=== PATIENT | male | born 1945 | race Caucasian/White ===

== ENCOUNTER 2024-03-16 10:00 | Outpatient (RCR) | payer OTHER, SELFPAY | END 2024-05-16 13:40 | disposition home or self-care (01) | PROVIDERS: PCP Family Medicine; Visit Provider Orthopaedic Surgery | DX: M75.102 Unspecified rotator cuff tear or rupture of left shoulder, not specified as traumatic (principal); Z51.89 Encounter for other specified aftercare | CPT/HCPCS: 97110; 97140; 97161 ==

== ENCOUNTER 2025-01-11 13:45 | Outpatient (RCR) | payer MEDICARE, OTHER, SELFPAY ==
--- OUTSIDE RECORDS SUMMARY | 2024-11-16 08:11 | XMS_ITS | Encounter Summary ---
Author Organization [facility] Address [address] [place] [address]. [place] [address] Care Team Providers Care Manufacturing Analyst Name Role Phone Joe Cole MD Primary Care Provider [phone] Eitan Alvarado MD Unavailable Luiz Flores MD Unavailable [phone]- [phone] Encounter Details Date Type Department Care Team (Late st Contact Info) Description 10/19/2024 Telephone [facility] [place] 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 Gender Identity Male 07/28/2023 6:37 PM CDT Sexual Orientation Straight 07/28/2023 6: 37 PM CDT documented as of this encounter Miscellaneous Notes * Telephone Encounter - Anaya Pitts RN - 10/19/2024 3:22 PM CST Called patient and scheduled him for today with Dr Flores 450pm Anaya ALDRICH, RN [facility] Office: [phone] SITE DRILLING ENGINEER * Telephone Encounter - Deepti Grijalva - 10/19/2024 3:07 PM CST [facility] Who is the name of the provider?: LUIZ FLORES What is the location you see this provider at/preferred location?: [place] Person calling / Facility: [facility] Phone number: [phone] (home) Nurse call back needed: Yes Reason for call: Patient's arms and legs are black and hands are falling a sleep and turning white and purple. Pharmacy location: n/a Outside Imaging: n/a Can we leave a detailed message on this number? YES 10/19/2024, 3:07 PM SITE DRILLING ENGINEER documented in this encounter Plan of Treatment Not on file documented as of this encounter Visit Diagnoses Not on filedocumented in this encounter Care Teams Manufacturing Analyst Relationship Specialty Start Date End Date Joe Cole MD PCP - General Family Practice 07/08/14 Eitan Alvarado MD [address] [place] [address] Assigned Surgical Provider 07/31/23 Luiz Flores MD [address] [place] [address] Assigned Heart and Vascular Provider 03/07/24 documented as of this encounter
--- OUTSIDE RECORDS SUMMARY | 2024-11-16 08:11 | XMS_ITS | Encounter Summary ---
Author Organization [place] Address [address] [place] [address]. [place] [address] Care Team Providers Care Utilities Manager Name Role Phone Joe Cole MD Primary Care Provider [phone] Eitan Alvarado MD Unavailable [phone] Mikhail Sauceda MD Unavailable [phone] Reason for Visit * Reason Comments RECHECK Pt c/o arms turning black and hands are numb Encounter Details Date Type Department Care Team (Late st Contact Info) Description 10/19/2024 4:50 PM LABORATORY GENETICIST Virtual Visit [facility] [place] 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 Those studies revealed slightly ectatic bilateral common iliac arteries measuring up to 1.4 cm. He also has small BLE popliteal artery aneurysms. He did have diffuse atherosclerotic calcification throughout all visible arteries. We were unable to visualize blood flow in the right posterior tibial artery, though the remaining arteries are patent in both lower extremities with triphasic/biphasic waveforms. He can walk six blocks before developing claudication. He does not have CLI sxs. As he was only a claudicant, he was advised to increase his walking at home, walking up to and through pain. With this he notes improvement in sxs. He did not get labs done as ordered in 05/2024. The plan had been to repeat imaging and labs in 05/2025. He called us several hours ago stating hisarms and legs are black and hands are falling asleep and turning white and purple. He does not have ice cold hands. He states he can feel bilateral radial and femoral pulses. Through a video call today I looked at his forearms. He simply has prominent bruising of his forearms. This is likely due to the aging process, chronic steroid use, and chronic minocycline use. Plan:He should discuss management of steroids and minocycline wit the responsible MD for those drugs. Go to ED if he develops sxs of acute limb ischemia, which were explained to him. (R20.2) Paresthesias Comment: These are definitively due to radiculopathic presentations, not due to arterial or venous vascular disease. Plan: He should proceed with whatever solution his spinal surgeon feels to be appropriate. (I73.9) PAD (peripheral artery disease) (H24) (primary encounter diagnosis) Comment: ABIs numerically abnormal but he has noncompressible vessels. Check the below in one year. Plan: US Lower Extremity Arterial Duplex Bilateral, US MAREK Doppler with Exercise Bilateral (E78.5) Hyperlipidemia LDL goal <70 Comment: He did not get labs done as ordered. Plan: rosuvastatin (CRESTOR) 5 MG tablet, C-Reactive Protein, High Sensitivity, LipoFit by NMR, Lipoprotein (a) We will simply check labs in 06/2025. 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 Plan: US Lower Extremity Arterial Duplex Bilateral in 07/09. (I10) Essential hypertension Comment: BP at home unknown, maintain on current doses as he was agitated by traffic coming in today. Plan: losartan (COZAAR) 25 MG tablet (R73.01) IFG (impaired fasting glucose) Comment: avoid cho Plan: Comprehensive metabolic panel, Hemoglobin A1c (I87.2) Venous (peripheral) insufficiency Comment: Wear knee high compression hosiery. Plan: Rx given 21 minutes total medical care on today's date. location: office Pt location: home Phone call start: 16:44 Phone call end: 17:05 Doximity HPI: Alex Botello is a slender, physically active nonsmoking 78 year old male with mild BLE venous insufficiency, htn, HLD but without known ASCVD or DM2 who is presenting at the current time todiscuss his symptoms of instantaneously occurring sharp electrical brought on by bending over to p[ut pants or shoes on, as well as numbness and tingling with discoloration in his fingers. The finger sxs are not brought about by exposure to environmentally cooler temperatures. He had several RICHELLE which alleviated those sxs in the past. He was seen by a spinal surgeon recently who stayed he would need a multi level fusion. Review Of Systems Skin: Patient's arms and legs are black and hands are falling a sleep and turning white and purple. Eyes: negative Ears/Nose/Throat: negative Respiratory: No shortness of breath, dyspnea on exertion, cough, or hemoptysis Cardiovascular: negative Gastrointestinal: negative Genitourinary: negative Musculoskeletal: negative Neurologic: negative Psychiatric: negative Hematologic/Lymphatic/Immunologic: negative Endocrine: negative RATORY GENETICIST documented in this encounter Plan of Treatment Not on file documented as of this encounter Visit Diagnoses Diagnosis Bruising- Primary Contusion of unspecified site documented in this encounter Care Teams Utilities Manager Relationship Specialty Start Date End Date Joe Cole MD PCP - General Family Practice 07/08/14 Eitan Alvarado MD [address] [place] [address] Assigned Surgical Provider 07/31/23 Mikhail Sauceda MD [address] [place] [address] Assigned Heart and Vascular Provider 03/07/24 documented as of this encounter
--- OUTSIDE RECORDS SUMMARY | 2024-11-16 08:11 | XMS_ITS | Clinical Summary ---
Author Organization [facility] Address [address] [place] [id number] Care Team Providers Care Nip Wrapper Name Role Phone Joe Cole MD Primary Care Provider [phone] Eitan Alvarado MD Unavailable [phone] Mikhail Sauceda MD Unavailable [phone] Allergies Active Allergy Reactions Criticality Noted Date Comments Oxycodone Nausea 07/08/2014 Penicillins Itching 07/08/2014 Fingers swelling, itching happened when young Medications PREDNISONE PO Take 4 mg by mouth Active Probiotic Product (PRO-BIOTIC BLEND PO) Active zinc 50 MG TABS Acti ve Ascorbic Acid (VITAMIN C PO) Take 500 mg by mouth Active Garlic 1000 MG CAPS Active Capsicum, Cayenne, (CAYENNE PO) Take 450 mg by mouth Active Apremilast (OTEZLA PO) Take 30 mg by mouth 2 times daily Active Respiratory Therapy Supplies (CARETOUCH 2 CPAP HOSE CLERK SPECIALIST) [facility] CPAP machine for home use at pressure 8 cmw, starting pressure 5pm, nasal mask x1/3month with nasal cushion x2/mo 3 Active clobetasol (TEMOVATE) 0.05 % external solution Apply topically 2 times daily Active desipramine (NORPRAMIN) 10 MG tablet Take 20 mg by mouth At Bedtime Active fluticasone (CUTIVATE) 0.05 % external cream Apply topically daily as needed 3 Active losartan (COZAAR) 25 MG tabletIndication s:Essential hypertension Take 1 tablet (25 mg) by mouth daily 90 tablet 3 4 Active rosuvastatin (CRESTOR) 5 MG tabletIndication s:Hyperlipidemia LDL goal <70 Take 1 tablet (5 mg) by mouth daily 90 tablet 3 4 Active terbinafine (LAMISIL) 250 MG tablet Take 250 mg by mouth daily at 2 pm 3 024 Discontinu ed(Stopped by Patient (No AVS)) Encounters Date Type Department Care Team Description 10/19/2024 4:50 PM RETAIL PERSONAL BANKER Virtual Visit [facility] [place] [address] [place] [phone] Mikhail Sauceda MD Bruising (Primary Dx) 10/19/2024 Telephone [facility] [place] [address] [place] [phone] Mikhail Sauceda MD from Last 3 Months Family History Medical History Relation Comments Cancer Brother brain Cancer - colorectal Mother Cerebrovascular Disease Mother Hypertension Mother Relation Status Comments Brother Mother Social History Tobacco Use Types Packs/Day Years Used Date Smoking Tobacco: Former Cigarettes Q uit: 06/06/2017 Smokeless Tobacco: Former Tobacco Cessation:Counseling Given: Not Answered Alcohol Use Standard Drinks/Week Comments Yes 0 (1 standard drink = 0.6 oz pur e alcohol) occ PHQ-2 Answer Date Recorded PHQ-2 Score 0 06/27/2024 Adolescent Education Answer Date Record ed Getting School Help Needed Not on file 08/07 Sex and Gender Information Value Date Recorded Sex Assigned at Male 07/28/2023 6:37 PM CDT Legal Sex Male 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 PERSONAL 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 Gender Identity Male 07/28/2023 6:37 PM CDT Sexual Orientation Straight 07/28/2023 6: 37 PM CDT Last Filed Vital Signs Vital Sign Reading Time Taken Comments Blood Pressure 146/69 06/27/2024 1:11 PM CDT Pulse 84 06/27/2024 1:11 PM CDT Temperature 36.3 C (97.4 F) 06/09/2018 9:56 AM CDT Respiratory Rate 16 07/28/2023 9:47 AM CDT Oxygen Saturation 96% 06/27/2024 1:11 PM CDT Inhaled Oxygen Concentration - - Weight 73.5 kg (162 lb) 06/27/2024 1:11 PM CDT Height 180.3 cm (5' 11) 03/01/2024 11:35 AM CDT Body Mass Index 22.59 03/01/2024 11:35 AM CDT Plan of Treatment Health Maintenance Due Date Last Done Comments ADVANCE CARE PLANNING 1945 ANNUAL REVIEW OF HM ORDERS 1945 BMP 1945 GLUCOSE 1947 LIPID 1947 HEPATITIS C SCREENING 1965 LUNG CANCER SCREENING 1997 RSV VACCINE (1 - 1-dose 75+ series) 2022 FALL RISK ASSESSMENT 06/25/2022 06/25/2021 MEDICARE ANNUAL WELLNESS VISIT 06/30/2024 06/30/2023, 06/30/2023, 06/24/2022, Additional history exists COVID-19 Vaccine ( - season) 2024 09/30/2021, 02/08/2021 INFLUENZA VACCINE (#1) 2024 PHQ-2 (once per calendar year) 2024 06/27/2024 DTAP/TDAP/TD IMMUNIZATION (2 - Td or Tdap) 04/05/2025 04/05/2015, 10/16/2005, 02/18/2005 Pneumococcal Vaccine: 50+ Years Completed 04/06/2016, 04/05/2015 ZOSTER IMMUNIZATION Completed 10/14/2020, 07/02/2020, 05/09/2008 HPV IMMUNIZATION Aged Out No longer e ligible based on patient's age to complete this topic MENINGITIS IMMUNIZATION Aged Out No l onger eligible based on patient's age to complete this topic RSV MONOCLONAL ANTIBODY Aged Out No l onger eligible based on patient's age to complete this topic Insurance [employer] [facility] Care Teams Nip Wrapper Relationship Specialty Start Date End Date Joe Cole MD PCP - General Family Practice 07/08/14 Eitan Alvarado MD [address] [place] [address] Assigned Surgical Provider 07/31/23 Mikhail Sauceda MD [address] [address] Assigned Heart and Vascular Provider 03/07/24
--- OUTSIDE RECORDS SUMMARY | 2024-11-16 08:11 | XMS_ITS | Clinical Summary ---
Author Organization [email or web address] Address [place], [place] [address] Care Team Providers Care Check Airman Name Role Phone Joe Cole MD Primary Care Provider [phone] Silvano Buchanan MD Unavailable [phone] Allergies Active Allergy Reactions Criticality Noted Date Comments Acetaminophen *Unknown - Pt Doesn' t Remember Unknown 09/30/2020 Amlodipine Other - Describe In Comment Field Unknown 04/14/2019 Gynecomastia while on prednisone Candesartan Nausea Only,Headache Unknown 02/12/2014 Chlorthalidone Other - Describe In Comment Field Unknown 04/14/2019 Gynecomastia while on prednisone Lisinopril Headache Unknown 04/04/2014 Oxycodone Nausea Only Medium 10/16/2008 Severe nausea Penicillins Itching Unknown 08/16/2006 Ancef tolerated Fingers swelling, itching happened when young Medications ZINC 50 MG CAP take 1 tablet (50 mg) by oral route ONCE daily Active VITAMIN B COMPLEX ORAL Take 1 tablet by mouth. 07/08/20 16 Active clobetasol 0.05% TOPICAL (TEMOVATE) 0.05 % external solution APPLY TO AFFECTED AREA(S) OF SCALP TWO TIMES A DAY ON WEEKENDS 10/13/20 21 Active Calcipotriene 0.005 % topical solution APPLY AMOUNT TO COVER THE LESIONS ON SCALP 2 TIMES A DAY ; RUB IN GENTLY & COMPLETELY - USE WEDNESDAY - Wednesday10/23/20 21 Active CPAPIndications:OS A (obstructive sleep apnea) CPAP machine for home use at pressure 8 cmw, starting pressure 5pm, nasal mask x1/3month with nasal cushion x2/mo 1 Each 11 07/15/20 23 Active FINASTERIDE ORAL Take 2.5 mg by mouth once daily. Active minocycline (MINOCIN) 100 mg tablet Take 100 mg by mouth two times daily. Active risankizumab-rzaa (Skyrizi) 150 mg/mL subcutaneous pen Inject 150 mg subcutaneous every 4 months. Active ascorbic acid, vitamin C, (Vitamin C) 1,000 mg tablet Take 1,000 mg by mouth once daily. Active GARLIC ORAL Take by mouth. Act sammie CAPSICUM, CAYENNE, ORAL Take by mouth. Activ e rosuvastatin (CRESTOR) 5 mg tabletIndications: Other hyperlipidemia Take 1 Tablet (5 mg) by mouth at bedtime. 90 Tablet 3 07/04/20 24 Active losartan (COZAAR) 50 mg tabletIndications: Essential hypertension Take 1 Tablet (50 mg) by mouth once daily. 90 Tablet 3 07/04/20 24 Active alendronate (FOSAMAX) 70 mg tabletIndications: Age-related osteoporosis without current pathological fracture Take 1 Tablet (70 mg) by mouth once a week in the morning. Take on empty stomach with full glass of water. Do not lie down for 1 hr. 12 Tablet 4 07/04/20 24 Active desipramine (NORPRAMIN) 10 mg tabletIndications: Irritable bowel syndrome with diarrhea Take 1 Tablet (10 mg) by mouth at bedtime. 100 Tablet 3 07/04/20 24 Active predniSONE (DELTASONE) 1 mg tabletIndications: Psoriatic arthritis (HC) Take 4 Tablets (4 mg) by mouth once daily with a meal. 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 Age-related osteoporosis wit hout current pathological fracture 07/30/2022 Overview (07/30/2022): Diagnosed on bone density in 07/2022. Started on Fosamax. Follow up bone density in 2 years. Drug-induced gynecomastia 10/17/2018 Overview (10/17/2018): Started in 2018. [place] to be due to a combination of prednisone, amlodipine and chlorthalidone Essential hypertension 09/29/2018 Other hyperlipidemia 04/13/2018 Kidney stones 03/20/2009 Thoracic or lumbosacral neur itis or radiculitis, unspecified 09/07/2008 PSORIATIC ARTHRITIS 03/06/2008 Overview (04/14/2019): Tapering off Prednisone under the direction of Dr. Corona as of 04/14/2019. 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 09/07/2008 2021 Spinal stenosis, lumbar sheila on, without neurogenic claudication 10/26/2007 09/07/2008 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 10/26/2007 03/21/2010 Encounters Date Type Department Care Team Description 11/02/2024 1:00 PM WEIGHT ENGINEER Office Visit [facility] [address] [place] [address] Santos Henley, OD Eye Problem (Pressure and Reduced Vision OU/both eyes following cataract surgery ) 11/02/2024 Travel 09/13/2024 11:20 AM CDT Office Visit [facility] [address] [place] [address] Joe Cole MD Preoperative Exam (Left shoulder surgery 09/28/2024) 09/13/2024 Travel 09/08/2024 Travel 09/01/2024 11:20 AM CDT Office Visit [facility] [address] [place] [address] Santos Henley, OD Post-op (3 Week IOL OU POV ) 09/01/2024 Travel 08/28/2024 Travel from Last 3 Months Immunizations Name Administration Dates Next Due COVID-19 vaccine (Brown-J&J) PF, MDV 1 Hepatitis A (Adult) 03/21/2010,08/19/2009 Pneumococcal Poly,23-Valent (Pneumovax) 04/06/20 16 Pneumococcal conj 13-Valent (Prevnar 13) 015 Td (Age >=7 Years) 02/18/2005 Td, Preservative Free (age >= 7 Years) 5 Tdap 04/05/2015 Zoster (Shingrix-RZV, recombinant) 10/14/2020, Zoster (Zostavax-ZVL, live) 05/09/2008 Family History Medical History Relation Name Comments Cancer Brother 1 liver age 56 di ed Cancer Brother 2 brain tumor 51 Other Father emphysema, at 70 of this Stroke Mother Stroke at 82, d ied at 84 of stroke complications Other Sister Psoriasis Cancer-colon No Family History Cancer-prostate No Family History Relation Name Status Comments Brother 1 Brother 2 Father Mother Sister Alive Social History Tobacco Use Types Packs/Day Years Used Date Smoking Tobacco: Former Cigarettes 1 38 0 07/04/1962 - 07/04/2000 Smokeless Tobacco: Never Tobacco Cessation:Counseling Given: Yes Comments:Chewed some tobacco while smoking Alcohol Use Standard Drinks/Week Comments Yes 11.7 (1 standard drink = 0.6 oz pure alcohol) about 14 drinks per week [facility] Utilities Answer Date Recorded Do you have trouble paying f or utilities (for example, heat, electricity, water, phone)? Yes 07/20/2024 PHQ-2 Answer Date Recorded PHQ-2 TOTAL SCORE 0 07/04/2024 Social Connections Answer Date Recorded Do you often feel lonely or isolated from those around you? 0 07/20/2024 Alcohol Use Answer Date Recorded How often do you have a drink containing alcohol ? 4 07/04/2024 How many drinks containing a lcohol do you have on a typical day when you are drinking? 0 07/04/2024 How often do you have five or more drinks on one occasion? 0 07/04/2024 Financial Resource Strain Answer Date R ecorded Difficulty of Paying Living Expenses 3 07/04/2024 Difficulty of Paying Living Expenses Not on file 07/04/2024 Food Insecurity Answer Date Recorded Do you worry your food will run out before you are able to buy more? 1 07/20/2024 Transportation Needs Answer Date Record ed Does lack of transportation keep you from medica l appointments? 1 07/20/2024 Does lack of transportation keep you from work, meetings or getting things that you need? 1 07/20/2024 Housing Stability Answer Date Recorded What is your housing situation today? 1 07/20/2024 Sex and Gender Information Value Date Recorded Sex Assigned at Not on file Legal Sex Male 6:29 AM WEIGHT ENGINEER Gender Identity Male 05/26/2020 6:24 PM CDT Sexual Orientation Choose not to disclose 2019 6:24 PM CDT Occupation Industry Job Start Date Job End Date Retired Not on file Not on file Not on file Obstetrics History Last Filed Vital Signs Vital Sign Reading Time Taken Comments Blood Pressure 124/70 09/13/2024 12:05 PM CDT Pulse 102 09/13/2024 11:24 AM CDT Temperature 36.4 C (97.5 F) 09/13/2024 11:24 AM CDT Respiratory Rate 16 08/10/2024 10:40 AM CDT Oxygen Saturation 96% 09/13/2024 11:24 AM CDT Inhaled Oxygen Concentration - - Weight 75.8 kg (167 lb) 09/13/2024 11:24 AM CDT Height 179.1 cm (5' 10.51) 09/13/2024 11:24 AM CDT Body Mass Index 23.62 09/13/2024 11:24 AM CDT Plan of Treatment Upcoming Encounters Date Type Department Care Team (Late st Contact Info) Description 09/03/2025 10:00 AM CDT Office Visit [facility] [address] [place] [address] [place] [address] [place] [address] Health Maintenance Due Date Last Done Comments RSV vaccine for adults or (1 - 1-dose 75+ series) 2022 Medicare Wellness for age 65+ 06/30/2024, 06/24/2022, 2021, Additional history exists COVID-19 vaccine series ( season) 2024 09/30/2021, 02/08/2021 Influenza for age 65+ 07/16/2024 Tetanus booster 04/05/2025 04/05/2015, 12/2004, 02/18/2005 Depression screening for age 12+ 07/04/2025 07/04/2024, 06/30/2023, 06/25/2022, Additional history exists BMI (ht and wt on same day) for age 18+ 09/13/2025 09/13/2024, 07/21/2024, 07/04/2024, Additional history exists Tdap Completed 04/05/2015, 10/19/2005 Hepatitis C screening for ag e 18-79 Completed 04/06/2016 Pneumococcal series for age 50+ Completed 6, 04/05/2015 Zoster (shingles) series for age 50+ Completed 10/14/2020, 07/02/2020, 05/09/2008 Medical Devices Implanted Type Area Wash Driller Helper Device Identifier Shelf Expiration Date Model / Serial / Lot Iol Mclennan Preload 1 Pc Clear 6mm 20.00 Diopter Tecnis - [id number] Implanted:Qty : 1 on 07/27/2024 by Alex Barragan MD at [facility] Implants Left: Eye [employer] IOL 06/29/2027 [id number] / [id number] / NA Iol Mclennan Preload 1 Pc Clear 6mm 21.50 Diopter Tecnis - [id number] Implanted:Qty : 1 on 08/10/2024 by Alex Barragan MD at [facility] Implants Right: Eye [employer] 06/30/2027 [id number] / [id number] / NA Procedures Procedure Name Priority Date/Time Associated Diagnosis Comments POTASSIUM Routine 09/13/2024 12:17 PM CDT Preoperative general physical examination HEMOGLOBIN Routine 09/13/2024 12:17 PM CDT Preoperative general physical examination ANTI HCV Routine 04/06/2016 9:16 AM CDT Need for hepatitis C screening test from Last 3 Months or Most Recently Relevant to Health Maintenance Results * HEMOGLOBIN (09/13/2024 12:17 PM CDT) HEMOGLOBIN 15.3 13.2 - 17.1 g/dL [facility] Blood BLOOD SPECIMEN / Unknown 09/13/2024 12:17 PM CDT 09/13/2024 12:17 PM CDT Joe Cole MD HEMATOLOGY Final Resu lt Performing Organization Address City/[facility]/ZIP Co de Phone Number [facility] [address] [address], [place] [phone] [facility] [address] [place] [id number] * POTASSIUM (09/13/2024 12:17 PM CDT) Pathologist [facility] POTASSIUM 4.6 3.5 - 5.3 mmol/L [facility] BLOOD SPECIMEN / Unknown 09/13/2024 12:17 PM CDT 09/13/2024 12:17 PM CDT Joe Cole MD CHEMISTRY Final Resu lt [facility] [address] [place] [address], [place] [phone] [facility] [address] [place] [address] * ANTI HCV [64103.2] (04/06/2016 9:16 AM CDT) HEPATITIS C ANTIBODY Non-Reacti ve Non-Reacti ve 04/06/2016 3:45 PM CDT [facility] Blood specimen (specimen) BLOOD SPECIMEN / Unknown Venipuncture / Unknown 04/06/2016 9:16 AM CDT 04/06/2016 9:16 AM CDT Narrative [facility] - 04/06/2016 3:45 PM CDT Antibodies to HCV not detected; does not exclude the possibility of exposure to HCV. us Joe Cole MD SEND OUTS Final Resu lt [facility] [address] [place] [address], [place] from Last 3 Months or Most Recently Relevant to Health Maintenance Insurance MEDICARE ADVANTAGE MR MEDICARE PART A HB ONLY Advance Directives * Full Code (Latest Code Status on File) Date Activated Date Inactivated Comments 09/09/2011 7:26 AM 09/11/2011 4:32 PM * Full Code Date Activated Date Inactivated Comments 06/04/2010 11:00 AM 06/04/2010 8:51 PM * Full Code Date Activated Date Inactivated Comments 10/16/2008 12:32 PM 10/17/2008 4:01 PM * Full Code Date Activated Date Inactivated Comments 10/16/2008 9:21 AM 10/16/2008 12:32 PM * Full Code Date Activated Date Inactivated Comments 10/01/2006 8:59 AM 10/01/2006 3:52 PM Care Teams Check Airman Relationship Specialty Start Date End Date Joe Cole MD [address] [place] [address] PCP - General 03/13/06 Silvano Buchanan MD [address] [place] [address] Otolaryngology Surgery - Otolaryngology 05/20/12
--- OUTSIDE RECORDS SUMMARY | 2024-11-16 08:11 | XMS_ITS | Referral Summary ---
Author Organization [facility] Address [address] [place] [address]. [place] [address] Care Team Providers Care Shape Carver Name Role Phone Joe Cole MD Primary Care Provider [phone] Eitan Alvarado MD Unavailable [phone] Mikhail Sauceda MD Unavailable [phone] Encounters Date Type Department Care Team Description 10/19/2024 4:50 PM BIOPHARMACEUTICAL REP Virtual Visit [facility] [place] [address] [place] [phone] Mikhail Sauceda MD Bruising (Primary Dx) 10/19/2024 Telephone [facility] [place] [address] [place] [phone] Mikhail Sauceda MD from Last 3 Months Allergies Active Allergy Reactions Criticality Noted Date [...] Respiratory Therapy Supplies (CARETOUCH 2 CPAP HOSE [employer]ISH [employer]ICAL INTERPRETER) MISC CPAP machine for home use at pressure [...] 024 Discontinu ed(Stopped by Patient (No AVS)) Social History Tobacco Use Types Packs/Day Years [...] PM CDT Legal Sex Male 3:56 AM BIOPHARMACEUTICAL REP Gender Identity Male 07/28/2023 6:37 PM CDT [...] 03/01/2024 11:35 AM CDT Plan of Treatment Not on file Insurance [employer] Care Teams Shape Carver Relationship Specialty Start Date End Date Joe Cole MD PCP - General Family Practice 07/08/14 Eitan Alvarado MD [address] [place] [address] Assigned Surgical Provider 07/31/23 Mikhail Sauceda MD [address] [place] [address] Assigned Heart and Vascular Provider 03/07/24
== END 2025-02-20 12:15 | disposition home or self-care (01) ==
PROVIDERS: PCP Family Medicine; Visit Provider Orthopaedic Surgery
DX: Z98.890 Other specified postprocedural states (principal); R52 Pain, unspecified; R53.1 Weakness; Z51.89 Encounter for other specified aftercare
CPT/HCPCS: 97110; 97140; 97161